=== PATIENT | male | born 1970 | race Caucasian/White ===

== ENCOUNTER 2020-07-27 07:36 | Outpatient (CLI) | payer MEDICARE, MEDICAID, SELFPAY ==
[2020-07-27 09:13] LABS: Hemoglobin A1C 5.1 % (<5.7)
== END 2020-07-27 07:37 | disposition home or self-care (01) ==
LOC: ANHSURGERY 07:44
PROVIDERS: PCP Family Medicine; Visit Provider Urology
DX: Z01.818 Encounter for other preprocedural examination (principal); N52.9 Male erectile dysfunction, unspecified
CPT/HCPCS: 36415; 83036; 87086

== ENCOUNTER 2020-08-09 00:31 | Outpatient (CLI) | payer MEDICARE, MEDICAID, SELFPAY ==
[2020-08-09 16:39] LABS: SARS-CoV-2 RNA PCR Negative
== END 2020-08-09 00:32 | disposition home or self-care (01) ==
LOC: ANHCOVIDDT 00:31
PROVIDERS: PCP Family Medicine; Visit Provider Urology
DX: Z01.812 Encounter for preprocedural laboratory examination (principal); Z20.828 Contact with and (suspected) exposure to other viral communicable diseases
CPT/HCPCS: 87635; C9803; U0003

== ENCOUNTER 2020-08-11 01:46 | Day surgery (SDC) | payer MEDICARE, MEDICAID, SELFPAY ==
[2020-07-27 07:52] VITALS: BP 133/74; PULSE 82; RESP 16; TEMP 37.1; O2SAT 97; BMI 36.8
[2020-08-11] VITALS (9 sets, daily range): BP systolic 115–141; BP diastolic 78–92; PULSE 62–91; RESP 12–24; TEMP 36.3–36.9; O2SAT 93–100
--- NOTE | 2020-08-11 10:03 | WPDANESEPPF ---
Anes - Initial Pre Proc Eval Procedure: Operation Date: 08/11/20 13:00 Proposed Procedures p Insertion Inflatable Penile Prosthesis - Mojgan Desai MD Date/Time: 08/11/20 10:03 Surgeon: Mojgan Desai MD Pre Op Diagnosis: Other Male Erectile Dysfunction Patient Data Age: 50 Gender: M Height: 1.63 m Weight: 97.4 kg Last Vital Signs Temp 37.1 C 07/27/20 07:52 Pulse 82 07/27/20 07:52 Resp 16 07/27/20 07:52 BP 133/74 07/27/20 07:52 Pulse Ox 97 07/27/20 07:52 Allergies Allergy/AdvReac Type Severity Reaction Status Date / Time adhesive tape Allergy Intermediate Rash Verified 08/11/20 11:58 bee venom protein (honey bee) Allergy Intermediate Swelling Verified 08/11/20 11:58 [bees] Home Medications Medication Instructions Recorded Confirmed Type ibuprofen 800 mg PO TID 07/27/20 08/11/20 History icosapent ethyl [Vascepa] 1 g PO BID 07/27/20 08/11/20 History multivitamin 1 tablet PO DAILY 07/27/20 08/11/20 History terbinafine HCl 250 mg PO DAILY 07/27/20 08/11/20 History tizanidine 2 mg PO TID 07/27/20 08/11/20 History tramadol 100 mg PO Q6-8H 07/27/20 08/11/20 History Patient hx anesthesia problems: none Family hx anesthesia problems: none PMFSH Past Medical History Medical History (Updated 08/11/20 @ 08:29 by Ankur Schmitt DO) Chronic, continuous use of opioids tramadol History of MRSA infection NISA (obstructive sleep apnea) Surgical History Surgical History (Updated 08/11/20 @ 08:29 by Ankur Schmitt DO) History of appendectomy History of tonsillectomy Social History Social History Years smoked: 1 Smoking status: Former smoker Tobacco type: cigars Living arrangements: with family Spiritual care concerns: No Anes - Eval Final PreProcedure Day of Procedure 08/11/20 10:03 Patient weight: obese Heart: regular rate and rhythm Lungs: clear to auscultation and normal air movement Airway: Mallampati scale class II Neurological: alert and oriented Last oral intake: >/= 8 hours ASA classification: III Emergent: no Anesthetic plan: proceed Anesthesia type and monitoring: general LMA and standard monitoring Informed Consent: The patient's anesthetic plan and its attendant risks and benefits were discussed with the patient/family/POA. Questions were solicited and answers provided to the satisfaction of the patient/family/POA.
[2020-08-11] MEDS: LACTATED RINGERS 1,000 ML 30 ML IV CONT ×2 (11:15→16:40)
[2020-08-11] MEDS: GENTAMICIN SULFATE INJ 370 MG in DEXTROSE 5% 100 ML 109.3 MG IVPB (11:37)
--- NOTE | 2020-08-11 12:33 | WPDHPUPDATE1 ---
History and Physical Update Update Date/Time: 08/11/20 12:33 History and Physical has been reviewed, including an updated exam of the patient. There are NO changes in the patient's condition. Risks, benefits, and alternatives have been discussed and questions answered. Patient agrees to proceed with procedure.
--- NOTE | 2020-08-11 16:40 | P.OP_ITS ---
Procedure Note - Detailed Date of procedure: 08/11/20 Pre-op diagnosis: Other Male Erectile Dysfunction Procedure performed: 1. Placement of three-piece inflatable penile prosthesis 2. Artificial erection with dilute lidocaine Description of procedure: DESCRIPTION OF PROCEDURE: Informed consent was obtained. The patient was taken to the operating room, given preoperative IV antibiotics. He was induced with anesthesia. He was shaved and then prepped and draped in the normal sterile fashion. Using a Betadine scrub and paint followed by ChloraPrep. Drapes were placed. We then prepped again with ChloraPrep. A 16-Icelandic Meraz catheter was inserted. We then irrigated and changed gloves. An artificial erection was performed with lidocaine revealing a normal erection with no significant curvature. We then made a 3 cm midline penoscrotal incision. We dissected down to the corporal bodies. We opened the right corporal body. We irrigated. We then dilated Masterson dilators starting from #9 to #12. We measured 8.5 cm proximal and 10.5 cm distal. We then performed identical procedure on the contralateral side again with slightly more fibrosis on the left. We measured 9.5 cm proximal and 9.5 cm distal. We elected to place a 18 cm LGX device with 1 cm rear tips. We placed dilators bilaterally proximally and there was no crossover. We irrigated the corporal bodies. There was no injury. We then changed gloves. We then placed the implant. Using a surrogate reservoir, we inflated. The cylinders sat nicely With tips in the mid glans. There was an approximately 30degree left curvature in the mid shaft. We then placed rubber shod clamps over the tubing and performed gentle modeling for 90seconds. At this point we then reinflated and there was only 15? of residual curvature. This appeared to be a nice cosmetic result with the tips in the mid glans. We then irrigated copiously. We then made a right lower quadrant incision. We dissected down to the external oblique fascia. The fascia was opened. We made a space into the rectus muscle. We irrigated. We then pre-placed 0 Vicryl sutures. We placed the 100 cc flat reservoir, was overfilled to 100 cc creating space and then left with 90 cc in the reservoir. We then closed our pre-placed sutures. We then made a subdartos midline pouch for the scrotal pump. It sat nicely in the inferior scrotum. We then brought the tubing from the scrotum to the abdomen and then using Quick connect connected the device. We cycled again within a nice cosmetic result and good functionality of the implant. We then irrigated copiously because the scrotum with multiple layers of 3-0 Vicryl suture followed by a 3-0 Monocryl horizontal mattress suture. We closed the abdomen with Morena layer with 2-0 Vicryl, 3-0 Vicryl deep dermal layer, and a 4-0 Monocryl subcuticular closure. Glue was placed over all incisions. A compressive dressing was placed. The patient was then awakened, taken to recovery room in stable condition. Anesthesia: GLMA Surgeon: Mojgan Desai MD Estimated blood loss (mL): 50 Complications: No immediate complications Condition: stable Disposition: PACU
[2020-08-11] MEDS: fentaNYL CITRATE INJ (*CRX) 100 MCG/2 ML VIAL 25 MCG IV PUSH ×8 (16:44→17:03)
[2020-08-11] MEDS: HYDROcodone/acetaminophen (*CRX) 5-325 MG TABLET 1 TAB PO ×2 (18:38→22:15)
[2020-08-11] MEDS: TIZANIDINE HCL 2 MG TABLET PO (20:17)
[2020-08-11] MEDS: DOCUSATE SODIUM 100 MG CAPSULE PO (20:17)
[2020-08-11] MEDS: MORPHINE SULFATE (*CRX) 2 MG/ML INJ IV PUSH (20:17)
--- NOTE | 2020-08-11 20:22 | ADMGEN ---
This patient, Haile Bean, was admitted to [facility] Surg Room 313-01. Patient/family oriented to hospital policies and general routines including ID bracelet, bed and alarms, visiting hours, pain management, procedures, bathroom and other care routines, personal items, smoking policy, room service/diet, and visiting hours. Valuables list has been completed. Information on how to activate the Rapid Response Team has been discussed. Patient/Family are encouraged to report perceived risks to care and to ask questions if they do not understand what they are told or what they should do.
[2020-08-12] MEDS: MORPHINE SULFATE (*CRX) 2 MG/ML INJ IV PUSH ×4 (00:33→12:51)
[2020-08-12 02:05] VITALS: PULSE 85; RESP 15; O2SAT 98
[2020-08-12 02:06] VITALS: BP 103/66; PULSE 86; RESP 20; TEMP 36.9; O2SAT 97
[2020-08-12] MEDS: HYDROcodone/acetaminophen (*CRX) 5-325 MG TABLET 1 TAB PO ×3 (02:15→10:17)
[2020-08-12 06:20] VITALS: BP 110/72
[2020-08-12 06:26] VITALS: BP 98/73; PULSE 68; RESP 20; TEMP 36.6; O2SAT 97
[2020-08-12] MEDS: TIZANIDINE HCL 2 MG TABLET PO ×2 (09:04→12:52)
[2020-08-12] MEDS: DOCUSATE SODIUM 100 MG CAPSULE PO (09:04)
[2020-08-12] MEDS: terbinafine HCL 250 MG TABLET PO (09:04)
--- NOTE | 2020-08-12 09:04 | WPDUROPN2 ---
Progress Note: A&P Assessment and Plan (1) Erectile dysfunction: Code(s): N52.9 - Male erectile dysfunction, unspecified Status: Acute Assessment and Plan: Follow up in two weeks with Dr. Desai. Ok to go home today after he is able to urinate and gets next dose of antibiotics. Remove velarde catheter and apply scrotal support, place penis in upward position. Subjective Subjective Date/Time Seen: 08/12/20 09:04 POD #1 IPP Review of Systems Cardiovascular: Cardiovascular: Denies chest pain Respiratory: Respiratory: Reports no additional respiratory complaints Gastrointestinal: Gastrointestinal: Denies abdominal pain, Denies nausea and Denies vomiting Genitourinary: Genitourinary: Reports genital pain, Denies penile discharge and Denies testicular pain Exam Resp: Effort & Inspection: normal respiratory effort Cardio: Rate: regular rate GI: GI Palp: Yes abdominal tenderness (at RLQ incsion only, no drainage or edema, minimal ecchymosis) and Yes Soft to palpation : General: Yes no CVA tenderness Penis: Yes edematous and Yes erythematous Scrotum: ecchymosis, edematous and scrotal swelling Other: incisons are well approximated, no drainage present Urinary Catheter: Urinary Catheter: patent and draining and urine clear Extrem: General: no edema Objective Data Vital Signs Vital Signs: Vital Signs - 24 hr 08/11/20 12:05 08/11/20 16:40 08/11/20 16:55 Temperature 97.8 F 98.5 F Pulse Rate 62 74 71 Respiratory Rate 16 24 H 12 Blood Pressure 141/80 H 125/86 131/86 Pulse Oximetry 98 97 100 08/11/20 17:10 08/11/20 17:25 08/11/20 17:40 Temperature Pulse Rate 74 71 69 Respiratory Rate 18 20 20 Blood Pressure 137/88 130/86 140/92 H Pulse Oximetry 93 97 94 08/11/20 18:29 08/11/20 20:00 08/11/20 22:00 Temperature 98.4 F 97.4 F L 97.3 F L Pulse Rate 76 91 91 Respiratory Rate 20 20 20 Blood Pressure 115/86 131/82 127/78 Pulse Oximetry 98 98 98 08/12/20 02:05 08/12/20 02:06 08/12/20 06:20 Temperature 98.4 F Pulse Rate 85 86 Respiratory Rate 15 20 Blood Pressure 103/66 110/72 Pulse Oximetry 98 97 08/12/20 06:26 Temperature 97.9 F Pulse Rate 68 Respiratory Rate 20 Blood Pressure 98/73 L Pulse Oximetry 97 Intake/Output Intake/Output: Intake & Output 08/09/20 08/10/20 08/11/20 08/12/20 23:59 23:59 23:59 23:59 Intake Total 1359.25 960 Output Total 300 3550 Balance 1059.25 -2590 Meds/Results Medications: Active Medications Generic Name Dose Route Start Last Admin Trade Name Freq PRN Reason Stop Dose Admin Hydrocodone Bitart/Acetaminophen 1 tab 08/11/20 17:44 08/12/20 06:19 [place] 5-325 Mg PO 1 tab Q4H PRN Administration Pain Rated 1-6 Docusate Sodium 100 mg 08/11/20 17:44 08/11/20 20:17 Colace Capsule PO 100 mg BID JACK Administration Hyoscyamine 0.125 mg 08/11/20 17:44 Levsin Tablet SUBLINGUAL Q6H PRN Bladder Spasm Gentamicin Sulfate/Sodium Chloride 80 mg in 50 mls @ 100 mls/hr 08/12/20 17:00 Gentamicin 80mg/Sod Chl 50 Ml IVPB 08/12/20 17:29 ONCE ONE Vancomycin HCl 1,000 mg in 250 mls @ 250 mls/hr 08/11/20 18:00 08/12/20 06:18 Vancomycin 1,000 Mg/D5w 250 Ml IVPB 08/12/20 18:01 250 mls/hr Q12H JACK Administration Levofloxacin 500 mg 08/12/20 09:00 Levaquin Tab PO QAM JACK Morphine Sulfate 2 mg 08/11/20 17:44 08/12/20 04:01 Morphine Sulfate Inj (*Crx) IV PUSH 2 mg Q2H PRN Administration Pain Rated 7-10 Naloxone HCl 0.1 mg 08/11/20 17:44 Narcan IV PUSH Q2M PRN Opiate Reversal Ondansetron HCl 4 mg 08/11/20 17:44 Zofran Inj IV PUSH Q12H PRN Nausea And Vomiting Terbinafine HCl 250 mg 08/12/20 09:00 Lamisil PO DAILY [facility] Tizanidine HCl 2 mg 08/11/20 17:44 08/11/20 20:17 Zanaflex PO 2 mg TID JACK Administration Tramadol HCl 100 mg 08/12/20 00:07 Ultram PO Q6HR PRN Pain Rated
--- NOTE | 2020-08-12 10:06 | PC.NURSE ---
Spoke with Stefanie Francis GRADER MARKER for Dr Desai. Called for clarification on when Meraz catheter is to be removed. Pt is to have Meraz removed today before discharge home. Pt can be D/C home after he can urinate and have scrotal support.
--- NOTE | 2020-08-12 10:49 | PM.DS ---
DS: Admitting Diagnosis Admitting Diagnosis Admitting Diagnosis: Other Male Erectile Dysfunction DS: Discharge Diagnosis Discharge Diagnosis (1) Erectile dysfunction: Code(s): N52.9 - Male erectile dysfunction, unspecified Status: Acute Assessment and Plan: Pre Op diagnosis: ED Post OP Diagnosis: ED Patient underwent an IPP implant yesterday with DR. Mojgan Desai and tolerated procedure well. He was then transferred to recovery in stable condition and to the floor for pain management overnight. He is doing well today. His dressing was removed and velarde removed as well. He will go home today on regular diet, activity as tolerated, no driving on pain medications. HE should follow up in two weeks, apply scrotal support and keep his penis in an upright position until his follow up appt. DS: Summary Time Spent with Patient Time attestation: Total time spent providing and/or coordinating discharge services: Exam Resp: Effort & Inspection: normal respiratory effort Cardio: Rate: regular rate GI: Inspection: incision (well approximated, no drainage) GI Palp: Yes Soft to palpation and Yes Tenderness to palpation present (GI) : General: Yes no CVA tenderness Penis: Yes ecchymosis and Yes edematous Scrotum: ecchymosis and edematous Urinary Catheter: Urinary Catheter: patent and draining and urine clear Extrem: General: no edema Discharge Plan Discharge Patient Disposition: Home, Self-Care Discharge Instructions: - scrotal elevation x 2 weeks - no lifting over 20 lbs x 3 weeks Stand Alone Forms: General Discharge Instructions Follow-up/Referrals: Mojgan Desai MD [Physician] - Discharge Orders: Discharge Order (Routine); Ordered 08/12/20 Ordered By: Stefanie Francis Discharge Medications: New hydrocodone-acetaminophen 5-325 mg Tablet 1 tablet PO Q4H PRN (Reason: Pain Rated 1-6) Qty: 20 RF: 0 docusate sodium 100 mg Capsule 100 mg PO BID Qty: 14 RF: 0 sulfamethoxazole-trimethoprim [Bactrim DS] 800-160 mg tablet 1 tablet PO Q12H Qty: 14 RF: 0 Continued multivitamin Tablet 1 tablet PO DAILY RF: 0 tizanidine 2 mg tablet 2 mg PO TID RF: 0 tramadol 50 mg tablet 100 mg PO Q6H PRN (Reason: Pain) RF: 0 terbinafine HCl 250 mg tablet 250 mg PO DAILY RF: 0 Vascepa 1 gram capsule 1 g PO BID RF: 0 Held ibuprofen 800 mg Tablet 800 mg PO TID RF: 0 Hold Instructions: Resume on 08/15/20.
--- NOTE | 2020-08-12 11:07 | WPDANESPN ---
Anes - Prog Note Post-Op Date/Time: 08/12/20 11:07 Cardiovascular status: normal Respiratory status: normal Airway patency: baseline Mental status: baseline Post-Op hydration status: normal Vital Signs: Last Vital Signs Temp 36.6 C 08/12/20 06:26 Pulse 68 08/12/20 06:26 Resp 20 08/12/20 06:26 BP 98/73 L 08/12/20 06:26 Pulse Ox 97 08/12/20 06:26 Pain Score (VAS): 3 I/O: Intake & Output 08/11/20 08/12/20 08/12/20 23:59 07:59 15:59 Intake Total 750 960 480 Output Total 300 9231 486 Balance 760 -9336 -901 Post-procedural complaints: none Patient Feedback: Patient satisfied with anesthetic care.
[2020-08-12 14:10] VITALS: BP 115/67; PULSE 73; RESP 18; TEMP 36.5; O2SAT 98
== END 2020-08-12 14:00 | disposition home or self-care (01) ==
LOC: ANHSURGERY 16:40 → ANH3MEDSUR 08-12 02:38
PROVIDERS: PCP Family Medicine; Visit Provider Urology
PROC: (CPT 54405; principal; 2020-08-11 13:00)
DX: N52.8 Other male erectile dysfunction (principal); G47.33 Obstructive sleep apnea (adult) (pediatric); Z79.891 Long term (current) use of opiate analgesic; Z87.891 Personal history of nicotine dependence; E66.9 Obesity, unspecified; Z68.36 Body mass index [BMI] 36.0-36.9, adult
CPT/HCPCS: 54405; 54235; A9270; J1100; J1580; J2250; J2270; J2405; J2704; J3010; J3370; J7030; J7120

== ENCOUNTER 2025-01-21 12:27 | Outpatient (CLI) | payer MEDICARE, MEDICAID, SELFPAY ==
--- NOTE | 2025-01-21 13:28 | ECG_ITS ---
Test Date: 2025-01-21 13:41:16 Measurements Intervals [place] Rate: 88 P: 25 NC: 139 QRS: 15 QRSD: 108 T: -3 QT: 353 QTc: 428 Interpretive Statements SINUS RHYTHM POOR R WAVE PROGRESSION CONSIDER INFERIOR INFARCT, AGE INDETERMINATE BASELINE ARTIFACT- I, II, III, AVR, AVL, AVF ABNORMAL ECG No previous ECG available for comparison Electronically Signed On 01-21-2025 13:51:31 POLISHING MACHINE OPERATOR by Gurdeep Amaral D.O.
[2025-01-21 19:27] LABS: Hemoglobin A1C 5.4 % (<5.7)
== END 2025-01-21 12:28 | disposition home or self-care (01) ==
LOC: ANHSURGERY 12:34
PROVIDERS: PCP Family Medicine; Visit Provider Urology
DX: Z01.818 Encounter for other preprocedural examination (principal); T83.490A Other mechanical complication of implanted penile prosthesis, initial encounter; E78.5 Hyperlipidemia, unspecified
CPT/HCPCS: 36415; 83036; 87086; 93005

== ENCOUNTER 2025-01-30 08:02 | Outpatient (CLI) | payer MEDICARE, MEDICAID, SELFPAY ==
--- NOTE | 2025-01-30 | EST_ITS ---
Patient Info Name: Haile Bean Age: 54 years : 1970 Gender: Male Ht: 63 in Wt: 230 lbs BSA: 2.21 m2 Exam Date: 01/30/2025 10:17 AM Exam Location: Echo Lab Patient Status: Outpatient Admit Date: 01/30/2025 Staff Ordering Physician: TREVIN, JERAD Attending Provider: TREVIN, JERAD Exercise Technologist: Kayley Olmstead RDCS Exercise Physician: Gurdeep Amaral DO Exam Type: CA stress chon w NM Study Info A regadenoson stress test was performed. Summary 1. 1. Negative lexiscan stress test for ischemic ST changes by ECG criteria. 2. 2. Stable hemodynamics throughout the test. 3. 3. Nuclear scan to follow and will be reported separately. Please correlate with it. 4. 4. Patient informed of the above results. Protocol: Lexiscan Stress ECG Details Stage: REST Duration (min): 1 min : 8 sec HR (bpm): 63 SBP (mmHg): 117 DBP (mmHg): 80 Stage: REST Duration (min): 14 min : 11 sec HR (bpm): 70 SBP (mmHg): 117 DBP (mmHg): 80 Stage: STAGE 1 Duration (min): 1 min : 0 sec HR (bpm): 98 SBP (mmHg): 119 DBP (mmHg): 99 Stage: RECOVERY Duration (min): 1 min : 0 sec HR (bpm): 85 SBP (mmHg): 127 DBP (mmHg): 100 Stage: RECOVERY Duration (min): 2 min : 0 sec HR (bpm): 82 SBP (mmHg): 127 DBP (mmHg): 100 Stage: RECOVERY Duration (min): 3 min : 0 sec HR (bpm): 80 SBP (mmHg): 134 DBP (mmHg): 96 Stage: RECOVERY Duration (min): 3 min : 29 sec HR (bpm): 84 SBP (mmHg): 134 DBP (mmHg): 96 Rest HR: 70 bpm Peak HR: 98 bpm Rest Sys BP: 117 mmHg Peak Sys BP: 134 mmHg Max Pred HR: 165 bpm % Max Pred HR: 59 % Target HR: 140 bpm Max RPP: 13,132 bpm*mmHg Termination Reason: Completed protocol Cardiac Symptoms: Shortness of breath Total Time: 1 min : 0 sec Rest Martinez BP: 80 mmHg Peak Martinez BP: 96 mmHg Total Dose: 0.4 mg Resting ECG Sinus rhythm. Stress ECG No ST changes. Arrhythmias None. Report Signatures
--- NOTE | ~2025-01-30 | NM_ITS ---
EXAMINATION: NM chon stress w perfusion DATE: 01/30/2025 12:02 INDICATION: Dyspnea on exertion TECHNIQUE: Rest images were obtained following intravenous administration of 9 mCi Tc99m tetrofosmin (Myoview). The patient was infused intravenously with Lexiscan (Regadenoson). Then, 35 mCi Tc99m tetr ofosmin (Myoview) was administered intravenously, and stress images were obtained. Data was reconstru cted into short axis and horizontal and vertical long axis SPECT images. Gated SPECT images were also obtained. COMPARISON: None. FINDINGS: There is decreased activity at the apical, apical septal, apical anterior and apical latera l segments on the rest images which nearly completely normalizes on the post stress imaging suggestin g artifact. There is minimal residual decreased activity at the apical and apical anterior segments o n the stress images which is equivocal for residual artifact versus infarct. No reversible ischemia. There is normal left ventricular chamber size, wall motion and ejection fraction. Left ventricular ejection fraction measures 58%. IMPRESSION: 1. Small region of either mild infarct or more likely attenuation artifact at the apical and anteroap ical segments. No reversible ischemia. 2. Left ventricular ejection fraction measuring 58%. Reviewed, dictated and finalized at location B. RD CLERK IMPRESSION: 1. Small region of either mild infarct or more likely attenuation artifact at t he apical and anteroapical segments. No reversible ischemia. 2. Left ventricular ejection fraction measuring 58%.
--- OUTSIDE RECORDS SUMMARY | 2025-01-30 08:10 | XMS_ITS | Encounter Summary ---
Author Organization [facility] Address [address] [place] [address] Care Team Providers Care Instructional Interventionist Name Role Phone Manuel Eller MD Primary Care Provider [phone] Encounter Details Date Type Department Care Team (Late st Contact Info) Description 02/09/2018 Abstract [facility] CONVERSION [address] [place] [address] , Generic Conversion, Social History Tobacco Use Types Packs/Day Years Used Date Smoking Tobacco: Never Assessed Sex and Gender Information Value Date Recorded Sex Assigned at Male 12/10/2024 9:04 AM PLASTICS FABRICATOR AND ASSEMBLER Legal Sex Male 9:31 PM PLASTICS FABRICATOR AND ASSEMBLER Gender Identity Not on file Sexual Orientation Not on file documented as of this encounter Plan of Treatment Not on file documented as of this encounter Visit Diagnoses Not on filedocumented in this encounter Additional Health Concerns Infection Onset Date Last Indicated Resolved Time MRSA 12/11/2018 12/11/2018 documented as of this encounter Care Teams Instructional Interventionist Relationship Specialty Start Date End Date Manuel Eller MD [address] [place] [address] PCP - General FAMILY PRACTICE 08/18/19 documented as of this encounter
--- OUTSIDE RECORDS SUMMARY | 2025-01-30 08:10 | XMS_ITS | Encounter Summary ---
Author Organization [facility] Address [address] [place] [id number] Care Team Providers Care Clinical Biostatistician Name Role Phone Manuel Eller MD Primary Care Provider [phone] Encounter Details Date Type Department Care Team (Late st Contact Info) Description 05/03/2019 Abstract [facility] CONVERSION [address] [address] , Generic Conversion, Social History Tobacco Use Types Packs/Day Years Used Date Smoking Tobacco: Never Assessed Sex and Gender Information Value Date Recorded Sex Assigned at Male 12/10/2024 9:04 AM YARD JOCKEY Legal Sex Male 9:31 PM YARD JOCKEY Gender Identity Not on file Sexual Orientation Not on file documented as of this encounter Plan of Treatment Not on file documented as of this encounter Visit Diagnoses Not on filedocumented in this encounter Additional Health Concerns Infection Onset Date Last Indicated Resolved Time MRSA 12/11/2018 12/11/2018 documented as of this encounter Care Teams Clinical Biostatistician Relationship Specialty Start Date End Date Manuel Eller MD [address] [place] [address] PCP - General FAMILY PRACTICE 08/18/19 documented as of this encounter
--- OUTSIDE RECORDS SUMMARY | 2025-01-30 08:10 | XMS_ITS | Clinical Summary ---
Author Organization [facility] Address [address] [place] [id number] Care Team Providers Care Master Plumber Name Role Phone Manuel Eller MD Primary Care Provider +1 [phone] Allergies Active Allergy Reactions Criticality Noted Date Comments Bee Venom Swelling 11/05/2014 Tape Other (see comment) 11/05/2014 Reddness and irritation Medications ibuprofen 800 MG tablet Active traMADol 50 MG tablet 0 10/02/2019 Active gabapentin 300 MG capsule Take 1 capsule (300 mg total) by mouth 3 (three) times daily. 09/27/2021 Active VASCEPA 1 g capsule Take 2 capsules (2 g total) by mouth 2 (two) times daily. 10/26/2021 Active sertraline 50 MG tablet Take 1 tablet (50 mg total) by mouth daily. 10/26/2021 Active tiZANidine 2 MG tablet Take 1 tablet (2 mg total) by mouth 3 (three) times daily. 10/26/2021 Active Multiple Vitamins-Minera ls (MULTIVITAMIN ADULTS OR) Active Active Problems Problem Noted Date Diagnosed Date Acute pain of left knee 11/23/2021 Encounters Date Type Department Care Team Description 12/10/2024 9:08 AM WOODWORK TEACHER - 12/10/2024 11:[address] [facility] Hospital Encounter [facility] [address] [place] [address] Huy Desai MD Discharge Disposition: Home or Self Care (Routine Discharge) 12/10/2024 Travel from Last 3 Months Family History Medical History Relation Comments OCD Brother 1 No Known Problems Brother 2 No Known Problems Father Scoliosis Mother No Known Problems Sister Relation Status Comments Brother 1 Alive Brother 2 Alive Father Alive Mother Alive Sister Alive Social History Tobacco Use Types Packs/Day Years Used Date Smoking Tobacco: Never Smokeless Tobacco: Never Tobacco Cessation:Counseling Given: Not Answered Alcohol Use Standard Drinks/Week Comments Yes 0 (1 standard drink = 0.6 oz pur e alcohol) occassionally AUDIT-C Answer Date Recorded Frequency of Alcohol Consumption Never 10/13/2019 Average Number of Drinks Not on file 019 Frequency of Binge Drinking Not on file 09/26 Sex and Gender Information Value Date Recorded Sex Assigned at Male 12/10/2024 9:04 AM WOODWORK TEACHER Legal Sex Male 9:31 PM WOODWORK TEACHER Gender Identity Not on file Sexual Orientation Not on file Last Filed Vital Signs Vital Sign Reading Time Taken Comments Blood Pressure 121/80 07/10/2023 12:48 PM CDT Pulse 79 07/10/2023 12:48 PM CDT Temperature 36.2 C (97.2 F) 07/10/2023 12:48 PM CDT Respiratory Rate 20 07/10/2023 12:48 PM CDT Oxygen Saturation 99% 07/10/2023 12:48 PM CDT Inhaled Oxygen Concentration - - Weight 104.3 kg (230 lb) 07/09/2023 8:14 AM CDT Height 160 cm (5' 3 ) 07/09/2023 8:14 AM CDT Body Mass Index 40.74 07/09/2023 8:14 AM CDT Plan of Treatment Health Maintenance Due Date Last Done Comments Annual Physical 1972 Hepatitis C 1987 Hepatitis B Vaccines (1 of 3 - 19+ 3-dose series) 1988 COVID-19 Vaccine ( - 2023-2 5 season) 2024 04/09/2021, 02/28/2021 Influenza Adult (#1) 2024 09/23/2021 DTaP, Tdap and Td Vaccines ( 2 - Td or Tdap) 01/04/2033 01/04/2023 Colorectal Cancer Screening Colonoscopy (10 Years) 07/10/2033 07/10/2023, 07/10/2023 Zoster Vaccines Completed 10/05/2021, 07/14/2021 Meningococcal B Vaccine Aged Out No l onger eligible based on patient's age to complete this topic Meningococcal Vaccine Aged Out No faiza kevin eligible based on patient's age to complete this topic Pneumococcal Vaccine: Pediatrics (0 to 5 Years) and At-Risk Patients (6 to 64 Years) Aged Out No longer eligible b ased on patient's age to complete this topic RSV Immunizations Under 20 Months Aged Out No longer eligible b ased on patient's age to complete this topic Medical Devices Implanted Type Area Corporate Scheduler Device Identifier Shelf Expiration Date Model / Serial / Lot Penile Prosthesis Penile Flux [id number] / / Description:MR Conditional u nder following conditions: Static magnetic field of 1.5 T or 3 T, Max spatial gradient field of 720 Gauss/cm , Max whole body CATHY of 1.5 W/kg or less at 1.5 T , 2.9 W/kg or less at 3 T, Head CATHY 3.2 W/kg or less Procedures Procedure Name Priority Date/Time Associated Diagnosis Comments CT PEL WO CON Routine 12/10/2024 9:19 AM WOODWORK TEACHER Malfunction of penile prosthesis (CMS/HCC) COLONOSCOPY 07/10/2023 6:44 AM CDT from Last 3 Months or Most Recently Relevant to Health Maintenance Results * CT PEL WO CON (12/10/2024 9:19 AM WOODWORK TEACHER) Anatomical Region Laterality Modality Pelvis Computed Tomogra phy 12/11/2024 9:54 AM WOODWORK TEACHER Impressions 12/11/2024 10:01 AM WOODWORK TEACHER Impression: The reservoir of the penile implant is located in the right rectus musculature. This reservoir is complete collapsed and only contains small amount of air (no fluid). The tubing of the reservoir courses in the anterior right subcutaneous fat of the pelvis and into the scrotal pump. The tubing and pump are intact and contain the air. The parallel penile implant hardware is intact. No inflammatory changes or hematoma related to the implanted hardware. Ordered By: HUY DESAI Interpreted By: Alberto Sewell MD, 12/11/2024 9:54 AM Narrative 12/11/2024 10:01 AM WOODWORK TEACHER [address] [place] [address] Examination: CT pelvis without contrast Exam Date: 12/10/2024 9:13 AM Indication: Penile implant dysfunction. patient has penile implant x 5 years, states approx 4 months ago, pump began to malfunction - evaluate and possibly replace in near future. Comparison:None Technique: Standard technique. Dose reduction: This CT exam was performed using one or more of the following dose reduction techniques: Automated exposure control, adjustment of the mA and/or kV according to patient size, and/or use of iterative reconstruction technique. Findings: Penile implant reservoir is in the right rectus musculature. The reservoir is collapsed and contains small air. The tubing of the reservoir courses in the anterior right subcutaneous fat of the pelvis and into the right sided scrotal pump. Both the tubing and the pump containing air. The parallel penile prosthesis is intact. No inflammatory changes or hematoma. No intestinal tract obstruction or inflammation. Colonic diverticulosis. Bladder unremarkable. No prostate or seminal vesicle enlargement. No adenopathy. No inguinal hernias. Small fat herniated in umbilicus. No ascites or pelvic free fluid. No fracture. Hardware in the fused lumbar sacral spine. Degenerative changes are seen in the spine and SI joints and pelvis. No muscle hematoma or injury. Mild muscular atrophy. No subcutaneous fluid collections or air. Procedure Note Alberto Sewell MD - 12/11/[address] [place] [address] Examination: CT pelvis without contrast Exam Date: 12/10/2024 9:13 AM Indication: Penile implant dysfunction. patient has penile implant x 5years, states approx 4 months ago, pump began to malfunction - evaluateand possibly replace in near future. Comparison:None Technique: Standard technique. Dose reduction: This CT exam was performed using one or more of thefollowing dose reduction techniques: Automated exposure control,adjustment of the mA and/or kV according to patient size, and/or use ofiterative reconstruction technique. Findings: Penile implant reservoir is in the right rectus musculature. The reservoiris collapsed and contains small air. The tubing of the reservoir coursesin the anterior right subcutaneous fat of the pelvis and into the rightsided scrotal pump. Both the tubing and the pump containing air. Theparallel penile prosthesis is intact. No inflammatory changes orhematoma. No intestinal tract obstruction or inflammation. Colonic diverticulosis.Bladder unremarkable. No prostate or seminal vesicle enlargement. Noadenopathy. No inguinal hernias. Small fat herniated in umbilicus. Noascites or pelvic free fluid. No fracture. Hardware in the fused lumbarsacral spine. Degenerative changes are seen in the spine and SI joints andpelvis. No muscle hematoma or injury. Mild muscular atrophy. Nosubcutaneous fluid collections or air. Impression: The reservoir of the penile implant is located in the right rectusmusculature. This reservoir is complete collapsed and only contains smallamount of air (no fluid). The tubing of the reservoir courses in theanterior right subcutaneous fat of the pelvis and into the scrotal pump.The tubing and pump are intact and contain the air. The parallel penileimplant hardware is intact. No inflammatory changes or hematoma related to the implanted hardware. Ordered By: HUY DESAI Interpreted By: Alberto Sewell MD, 12/11/2024 9:54 AM us Huy Desai MD CT Final Result * Colonoscopy (07/10/2023 6:44 AM CDT) us Estiven Rosa MD GI PROCEDURE ORDERABLES Edite d Result - Final from Last 3 Months or Most Recently Relevant to Health Maintenance Additional Health Concerns Infection Onset Date Last Indicated MRSA 12/11/2018 12/11/[address] [facility] [place] [address] [employer] Care Teams Master Plumber Relationship Specialty Start Date End Date Manuel Eller MD [address] [place] [address] PCP - General FAMILY PRACTICE 08/18/19
== END 2025-01-30 08:03 | disposition home or self-care (01) ==
PROVIDERS: PCP Family Medicine
DX: R06.09 Other forms of dyspnea (principal)
CPT/HCPCS: 78452; 93017; A9502; J2785

== ENCOUNTER 2025-04-01 00:55 | Day surgery (SDC) | payer MEDICARE, MEDICAID, SELFPAY ==
[2025-01-21 12:59] VITALS: BP 120/83; PULSE 91; RESP 16; TEMP 36.7; O2SAT 97; BMI 40.9
--- NOTE | 2025-01-21 13:15 | PC.NURSE ---
Report to the Outpatient Waiting Room, entrance under the green pavilion located off [facility], at time __0830am on date _02/04/25 . Planned Procedure Time: 1030am___.? Time changes happen often and if your time is changed the preop area will call you the afternoon before. - You and your visitor will be asked to self-screen and do not enter if you have any COVID symptoms. Please call surgeon if you need to reschedule. - A mask is optional within the hospital at this time. Patients may have clear liquids (water, carbonated beverages, clear teas, apple juice) until 3 hours prior to surgery with a maximum of 20 ounces. - No food from midnight until time of surgery and no smoking, or chewing tobacco (or any form of nicotine). No chewing gum, candy or mints. (0730am) Take only the following medications with a SIP of water on the morning of surgery: , Gabapentin, Tramadol and Tylenol if needed DO NOT STOP ANY OF YOUR OTHER PRESCRIPTION MEDICATIONS PRIOR TO SURGERY EXCEPT THE FOLLOWING Hold all vitamins and supplements for 3 days per anesthesiologist.Date to take last dose____01/31/25 Medications to discontinue per physician __HOLD ALL NSAIDS/ALEVE or ASPIRIN Products for 7 days prior Date to take last dose____01/27/25 Please no make-up, nail belarusian, hairspray, perfume, deodorant, or body powder the day of surgery.? No jewelry (including any body piercings) or valuables the day of surgery, leave them at home.? Please take a shower or bath the night before, or the morning of, surgery with an antibacterial soap.Scrub according to protocol from Dr Lb ann and spine supervisor PREOP antibiotics as prescribed too. ? Wear comfortable, loose fitting clothing.? - Jewelry must be removed prior to entering the operating room.? Rings and piercings that are not removed may be cut off. - The hospital will not accept responsibility for valuables.? - Please leave all valuables, including medications, at home the day of surgery. If you are going home after surgery, a licensed route sales driver must drive you home.? - NO public transportation without another adult if you receive anesthesia. - We recommend that an adult stay with you for 24 hours following discharge. - We also recommend that you do not drive, make important decision, drink alcoholic beverages, or take any drugs that were not prescribed by your health care provider for at least 24 hours after your discharge time. Follow any additional instructions given to you from your surgeon. Telephone instructions given to __Pateint and and asked if any additional questions and then verbalized understanding. Patient advised to call surgeon office or pre surgery nurse liaison [phone] if any additional questions.
[2025-03-20 09:49] VITALS: BMI 40.9
--- NOTE | 2025-03-20 10:52 | PC.NURSE ---
Report to the Outpatient Waiting Room, entrance under the green pavilion located off [facility], at time ___0830___ on date ___04/01/25__. Planned Procedure Time: ___1030___.? Time changes happen often and if your time is changed the preop area will call you the afternoon before. - You and your visitor will be asked to self-screen and do not enter if you have any COVID symptoms. Please call surgeon if you need to reschedule. - A mask is optional within the hospital at this time. Patients may have clear liquids (water, carbonated beverages, clear teas, apple juice) until 3 hours prior to surgery with a maximum of 20 ounces. - No food from midnight until time of surgery and no smoking, or chewing tobacco (or any form of nicotine). No chewing gum, candy or mints. Take only the following medications with a SIP of water on the morning of surgery: ____gabapentin, tramadol if needed DO NOT STOP ANY OF YOUR OTHER PRESCRIPTION MEDICATIONS PRIOR TO SURGERY EXCEPT THE FOLLOWING Hold all vitamins and supplements for 3 days per anesthesiologist. Medications to discontinue per physician ____please hold ibuprofen per surgeon___ Please no make-up, nail hungarian, hairspray, perfume, deodorant, or body powder the day of surgery.? No jewelry (including any body piercings) or valuables the day of surgery, leave them at home.? Please take a shower or bath the night before, or the morning of, surgery with an antibacterial soap.? Wear comfortable, loose fitting clothing.? - Jewelry must be removed prior to entering the operating room.? Rings and piercings that are not removed may be cut off. - The hospital will not accept responsibility for valuables.? - Please leave all valuables, including medications, at home the day of surgery. If you are going home after surgery, a licensed pedicab driver must drive you home.? - NO public transportation without another adult if you receive anesthesia. - We recommend that an adult stay with you for 24 hours following discharge. - We also recommend that you do not drive, make important decision, drink alcoholic beverages, or take any drugs that were not prescribed by your health care provider for at least 24 hours after your discharge time. Follow any additional instructions given to you from your surgeon. Telephone instructions given to ___Haile Ga __and asked if any additional questions and then verbalized understanding. Patient advised to call surgeon office or pre surgery nurse liaison [phone] if any additional questions.
[2025-04-01] VITALS (10 sets, daily range): BP systolic 118–153; BP diastolic 70–100; PULSE 72–107; RESP 10–18; TEMP 36.6–37.2; O2SAT 90–99
--- OUTSIDE RECORDS SUMMARY | 2025-04-01 00:57 | XMS_ITS | Clinical Summary ---
Author Organization [facility] Address [address] [place] [address] Care Team Providers Care Vocational Nursing Instructor Name Role Phone Manuel Eller MD Primary Care Provider [phone]- [phone] Allergies Active Allergy Reactions Criticality Noted Date [...] Encounters Date Type Department Care Team Description 03/24/2025 1:24 PM CDT - 03/24/2025 11:59 PM CDT [place] [address] [address] Mojgan Desai MD Discharge Disposition: Home or Self Care (Routine Discharge) 03/24/[address] [place] [id number] Mojgan Desai MD 03/24/2025 Travel 03/04/2025 2:27 PM CDT - 03/04/2025 11:59 PM CDT Hospital Encounter [facility] [address] [place] [address] Jerad Zhong PA Discharge Disposition: Home or Self Care (Routine Discharge) 03/04/2025 Travel from Last 3 Months Family History [...] Sex Assigned at Male 12/10/2024 9:04 AM COMMERCIAL AIRPLANE PILOT Legal Sex Male 9:31 PM COMMERCIAL AIRPLANE PILOT Gender Identity Not on file Sexual Orientation [...] of 3 - 19+ 3-dose series) 1988 Pneumococcal Vaccine: 50+ Years (1 of 1 - PCV) 2019 COVID-19 Vaccine ( - 2023-2 5 season) 2024 04/09/2021, 02/28/2021 DTaP, Tdap and Td Vaccines ( 2 [...] this topic Medical Devices Implanted Type Area Electrical And Instrumentation Mechanic Device Identifier Shelf Expiration Date Model / Serial / Lot Penile Prosthesis Penile AMS Rapport [id number] / / Description:MR Conditional u nder following conditions: Static magnetic field of 1.5 T or 3 T, Max spatial gradient field of 720 Gauss/cm , Max whole body CATHY of 1.5 W/kg or less at 1.5 T , 2.9 W/kg or less at 3 T, Head CATHY 3.2 W/kg or less Procedures Procedure Name Priority Date/Time Associated Diagnosis Comments URINE BACTERIA CULTURE Routine 03/24/2025 1:42 PM CDT Malfunction of penile prosthesis XR KNEE RT 3V Routine 03/04/2025 2:41 PM CDT Knee pain, right COLONOSCOPY 07/10/2023 6:44 AM CDT from Last 3 Months or Most Recently Relevant to Health Maintenance Results * URINE BACTERIA CULTURE (03/24/2025 1:42 PM CDT) SPEC DESCRIPTION URINE CLEAN CATCH 03/24/2025 1:34 PM CDT [facility] SPECIAL REQUESTS NO SPECIAL REQUEST 03/24/2025 1:34 PM CDT [facility] CULTURE RESULT NO GROWTH (< OR = 1,000 CFU/ML) 03/26/2025 8:46 AM CDT [facility] URINE SPECIMEN OBTAINED BY CLEAN CATCH PROCEDURE / Unknown 03/24/2025 1:42 PM CDT 03/24/2025 1:43 PM CDT Mojgan Desai MD MICROBIOLOGY - GENERAL ORDERA BLES Final Result [facility] [address] [place] [address], [id number] [facility] [address] [place] [address], * XR KNEE RT 3V (03/04/2025 2:41 PM CDT) Anatomical Region Laterality Modality Knee Radiographic Raven ging 03/05/2025 7:07 AM CDT Impressions 03/05/2025 7:07 AM CDT IMPRESSION: Stable degenerative changes Ordered By: JERAD ZHONG Interpreted By: Cornelius Malin MD, 03/05/2025 7:07 AM Narrative 03/05/2025 7:07 AM CDT [address] [place] [address] 3 VIEWS OF THE RIGHT KNEE Clinical History: Pain Comparison: June 02, 2024 3 views of the right knee demonstrate the bony elements to be intact. There is no evidence of fracture or dislocation. The surrounding soft tissues appear normal. Mild joint space loss is again noted in the medial compartment Procedure Note Cornelius Malin MD - 03/05/[address] [place] [id number] 3 VIEWS OF THE RIGHT KNEE Clinical History: Pain Comparison: June 02, 2024 3 views of the right knee demonstrate the bony elements to be intact.There is no evidence of fracture or dislocation. The surrounding softtissues appear normal. Mild joint space loss is again noted in the medialcompartment IMPRESSION: Stable degenerative changes Ordered By: JERAD ZHONG Interpreted By: Cornelius Malin MD, 03/05/2025 7:07 AM Jerad Zhong PA GENERAL IMAGING Final Resu lt * Colonoscopy (07/10/2023 6:44 AM CDT) us Estiven Rosa MD GI PROCEDURE ORDERABLES Edite d Result - Final from Last 3 Months or Most Recently Relevant to Health Maintenance Additional Health Concerns Infection Onset Date Last Indicated MRSA 12/11/2018 12/11/2018 Insurance MEDICAID [employer] Care Teams Vocational Nursing Instructor Relationship Specialty Start Date End Date Manuel Eller MD [address] [place] [address] PCP - General FAMILY PRACTICE 08/18/19
--- OUTSIDE RECORDS SUMMARY | 2025-04-01 00:57 | XMS_ITS | Encounter Summary ---
Author Organization [facility] Address [facility] [place] [address] Care Team Providers Care Patient Educator Name Role Phone Manuel Eller MD Primary Care Provider [phone]- [phone] Encounter Details Date Type Department Care Team (Late st Contact Info) Description 05/03/2019 Abstract [facility] CONVERSION [address] [place] [address] , Generic Conversion, Social History Tobacco Use Types Packs/Day Years Used Date Smoking Tobacco: Never Assessed Sex and Gender Information Value Date Recorded Sex Assigned at Male 12/10/2024 9:04 AM PROCEDURES TECH Legal Sex Male 9:31 PM PROCEDURES TECH Gender Identity Not on file Sexual Orientation Not on file documented as of this encounter Plan of Treatment Not on file documented as of this encounter Visit Diagnoses Not on filedocumented in this encounter Additional Health Concerns Infection Onset Date Last Indicated Resolved Time MRSA 12/11/2018 12/11/2018 documented as of this encounter Care Teams Patient Educator Relationship Specialty Start Date End Date Manuel Eller MD [address] [place] [address] PCP - General FAMILY PRACTICE 08/18/19 documented as of this encounter
--- OUTSIDE RECORDS SUMMARY | 2025-04-01 00:57 | XMS_ITS | Encounter Summary ---
Author Organization [facility] Address [address] [place] [address] Care Team Providers Care Bleach Maker Name Role Phone Manuel Eller MD Primary Care Provider [phone]- [phone] Encounter Details Date Type Department Care Team (Late st Contact Info) Description 02/09/2018 Abstract [facility] CONVERSION [address] [place] [address] , Generic Conversion, Social History Tobacco Use Types Packs/Day Years Used Date Smoking Tobacco: Never Assessed Sex and Gender Information Value Date Recorded Sex Assigned at Male 12/10/2024 9:04 AM NUCLEAR MEDICINE OFFICER Legal Sex Male 9:31 PM NUCLEAR MEDICINE OFFICER Gender Identity Not on file Sexual Orientation Not on file documented as of this encounter Plan of Treatment Not on file documented as of this encounter Visit Diagnoses Not on filedocumented in this encounter Additional Health Concerns Infection Onset Date Last Indicated Resolved Time MRSA 12/11/2018 12/11/2018 documented as of this encounter Care Teams Bleach Maker Relationship Specialty Start Date End Date Manuel Eller MD [address] [place] [address] PCP - General FAMILY PRACTICE 08/18/19 documented as of this encounter
[2025-04-01 08:29] LABS: Add Urine Microscopic? NO; Appearance Urine Clear (Clear); Bilirubin Urine Negative (Negative); Blood Urine Negative (Negative); Color Urine Yellow (Yellow); Glucose Urine UA Negative (Negative); Ketones Urine Negative (Negative); Leukocyte Esterase Ur Negative LEU/UL (Negative); Nitrate Urine Negative (Negative); Protein Urine Negative (Negative); Specific Grav Ur 1.019 (1.001-1.035); Urobilinogen Urine 0.2 mg/dL (<2.0)
[2025-04-01] MEDS: VANCOMYCIN 1,500 MG/NS 500 ML BAG 250 MG IVPB (09:00)
[2025-04-01] MEDS: LACTATED RINGERS 1,000 ML 30 ML IV CONT ×2 (09:00→14:42)
[2025-04-01] MEDS: GENTAMICIN SULFATE INJ 380 MG in DEXTROSE 5% 100 ML 96.78 MG IVPB (09:00)
--- NOTE | 2025-04-01 09:06 | P.PNAN_ITS ---
Anes - Initial Pre Proc Eval Procedure: Operation Date: 04/01/25 10:30 Proposed Procedures p Penile Prosthesis Removal and Replacement with Washout, - Mojgan Desai MD s Scrotal Exploration - Mojgan Desai MD Date/Time: 04/01/25 09:06 Surgeon: Mojgan Desai MD Pre Op Diagnosis: malfuction of penile prothesis Patient Data Age: 54 Gender: M Height: 1.6 m Weight: 104.8 kg Last Vital Signs Temp 36.7 C 01/21/25 12:59 Pulse 91 01/21/25 12:59 Resp 16 01/21/25 12:59 BP 120/83 01/21/25 12:59 Pulse Ox 97 01/21/25 12:59 O2 Del Method Room Air 01/21/25 12:59 Allergies Allergy/AdvReac Type Severity Reaction Status Date / Time adhesive tape Allergy Intermediate Rash Verified 03/20/25 09:48 bee venom protein (honey Allergy Intermediate Swelling Verified 03/20/25 09:48 bee) (bees) Home Medications ?Medication ?Instructions ?Recorded ?Confirmed ?Type ibuprofen 800 mg tablet 800 mg PO Q12H pain 07/27/20 01/21/25 History icosapent ethyl 1 gram capsule 1 g PO BID 07/27/20 01/21/25 History (Vascepa) multivitamin 1 tablet PO DAILY 07/27/20 01/21/25 History tizanidine 2 mg tablet 2 mg PO TID 07/27/20 01/21/25 History tramadol 50 mg tablet 100 mg PO Q6H PRN Pain 07/27/20 01/21/25 History gabapentin 300 mg capsule 300 mg PO TID 01/21/25 01/21/25 History Laboratory Tests 04/01/25 08:22 Urine Color Yellow (Yellow) Urine Appearance Clear (Clear) Urine pH 7.0 (5.0-9.0) Ur Specific [place] 1.019 (1.001-1.035) Urine Protein Negative mg/dL (Negative) Urine Glucose (UA) Negative mg/dL (Negative) Urine Ketones Negative mg/dL (Negative) Ur Blood (Man) Negative (Negative) Urine Nitrate Negative (Negative) Urine Bilirubin Negative (Negative) Urine Urobilinogen 0.2 mg/dL (<2.0) Leukocyte Esterase Rfl Negative SAMUEL/UL (Negative) Patient hx anesthesia problems: none Family hx anesthesia problems: none Results Review: All pre-operative results and documents have been reviewed as part of the pre- operative evaluation. [facility] Past Medical History Medical History Chronic, continuous use of opioids tramadol History of MRSA infection NISA (obstructive sleep apnea) Surgical History Surgical History History of tonsillectomy History of appendectomy Social History Social History Years smoked: 1 Smoking status: Former smoker Tobacco type: cigars Smoking end date: 11/26/04 Additional smoking assessment comments: No cigars since 2004 Alcohol intake: current Drinks per week: 2 Substance use: never Living arrangements: with family Additional living arrangements comments: Spiritual care concerns: No Anes - Eval Final PreProcedure Day of Procedure 04/01/25 09:06 Patient weight: morbidly obese Heart: regular rate and rhythm Lungs: decreased breath sounds Airway: Mallampati scale class III Neurological: alert and oriented Last oral intake: >/= 8 hours ASA classification: III Emergent: no Anesthetic plan: proceed Anesthesia type and monitoring: general LMA and standard monitoring Results Review: All pre-operative results and documents have been reviewed as part of the pre-operative evaluation. Informed Consent: The patient's anesthetic plan and its attendant risks and benefits were discussed with the patient/family/POA. Questions were solicited and answers provided to the satisfaction of the patient/family/POA.
--- NOTE | 2025-04-01 10:41 | P.HP_ITS ---
H&P: HPI History of Present Illness Date/Time: 04/01/25 10:41 Chief Complaint: IPP malfunction PMFSH Past Medical History Medical History (Updated 04/01/25 @ 10:42 by Mojgan Desai MD) Failure of penile implant Chronic, continuous use of opioids tramadol History of MRSA infection NISA (obstructive sleep apnea) Surgical History Surgical History History of tonsillectomy History of appendectomy Social History Social History Years smoked: 1 Smoking status: Former smoker Tobacco type: cigars Smoking end date: 11/26/04 Additional smoking assessment comments: No cigars since 2004 Alcohol intake: current Drinks per week: 2 Substance use: never Living arrangements: with family Additional living arrangements comments: Spiritual care concerns: No Meds Home Medications and Allergies Home Medications ?Medication ?Instructions ?Recorded ?Confirmed ?Type ibuprofen 800 mg tablet 800 mg PO Q12H pain 07/27/20 01/21/25 History icosapent ethyl 1 gram capsule 1 g PO BID 07/27/20 01/21/25 History (Vascepa) multivitamin 1 tablet PO DAILY 07/27/20 01/21/25 History tizanidine 2 mg tablet 2 mg PO TID 07/27/20 01/21/25 History tramadol 50 mg tablet 100 mg PO Q6H PRN Pain 07/27/20 04/01/25 History gabapentin 300 mg capsule 300 mg PO TID 01/21/25 01/21/25 History Allergies Allergy/AdvReac Type Severity Reaction Status Date / Time adhesive tape Allergy Intermediate Rash Verified 04/01/25 09:34 bee venom protein (honey Allergy Intermediate Swelling Verified 04/01/25 09:34 bee) (bees) Vital Signs Vital Signs - 24 hr 04/01/25 09:00 Temperature 36.6 C Pulse Rate 72 Respiratory Rate 14 Blood Pressure 136/70 Pulse Oximetry 99 Oxygen Delivery Room Air Exam Narrative: Patient is awake alert no acute distress. His breathing is labored. Abdomen soft nontender nondistended. He has penile prosthesis in place that does not inflate. H&P: Results Labs Labs: Urine 04/01/25 Range/Units 08:22 Urine Color Yellow (Yellow) Urine Appearance Clear (Clear) Urine pH 7.0 (5.0-9.0) Ur Specific [place] 1.019 (1.001-1.035) Urine Protein Negative (Negative) mg/dL Urine Glucose (UA) Negative (Negative) mg/dL Assessment and Plan Assessment and plan (1) Erectile dysfunction: Code(s): N52.9 - Male erectile dysfunction, unspecified Status: Acute (2) Failure of penile implant: Code(s): T83.410A - Breakdown (mechanical) of implanted penile prosthesis, initial encounter Status: Acute Plan Risk/benefits/alternatives discussed with the patient. Penile prosthesis placed in 2019 no longer functions. Plan penile prosthesis removal and replacement with antibiotic washout. He understands risk procedure and agrees to proceed
--- NOTE | 2025-04-01 10:43 | WPDHPUPDATE1 ---
History and Physical Update Update Date/Time: 04/01/25 10:43 History and Physical has been reviewed, including an updated exam of the patient. There are NO changes in the patient's condition. Risks, benefits, and alternatives have been discussed and questions answered. Patient agrees to proceed with procedure.
[2025-04-01] MEDS: NACL 0.9% IRRIG BAG 1,000 ML, VANCOMYCIN HCL 1,000 MG, GENTAMICIN SULFATE INJ 80 MG IRRIGATION (11:34)
[2025-04-01] MEDS: NACL 0.9% IRRIG BAG 1,000 ML, ceFAZolin 1 GM, TOBRAMYCIN SULFATE INJ 40 MG IRRIGATION (11:34)
[2025-04-01] MEDS: LIDOCAINE 1% LOCAL INJ 20 ML VIAL INFILTRATE (11:36)
[2025-04-01] MEDS: ceFAZolin SODIUM 1 GM VIAL (11:37)
[2025-04-01] MEDS: BUPivacaine HCL 0.25% PF 30 ML VIAL INFILTRATE (11:37)
--- NOTE | 2025-04-01 14:46 | W.PM.PROC2 ---
Procedure Note - Detailed Date of Procedure 04/01/25 Pre-op Diagnosis malfuction of penile prothesis Post-op Diagnosis Same Procedure Performed Penile prosthesis removal and replacement Scrotal Exploration Surgeon Mojgan Desai MD Anesthesia General Findings - Bilateral penile prosthesis cylinders broken and imbedded into corporal bodies (AMS LGX 18 + 1cm), replacement to AMS CX 18+2cm device Description of Procedure Informed consent was obtained. The patient taken to the operating room and given preoperative IV antibiotics with vancomycin and gentamicin. Additionally the patient was taking oral levofloxacin at home. The patient was shaved, prepped and draped in the normal sterile fashion in the supine position was frog legged. The patient had a scrub and paint with Betadine followed by ChloraPrep. A 16 [place] Meraz catheter was placed. We then made a 4 cm incision over the patient's pre-existing penoscrotal incision. We then dissected bluntly down to the pump. The pump was identified and freed from surrounding structures. We then dissected down to the right corporal body. We opened the corpora and found that the cylinder was broken and had imbedded into the inner layers of the corporal body. We therefore extended our corporotomy proximally and dissected the imbedded cylinder away from surrounding structures taking great care not to injure the urethra during dissection. The cylinder was imbedded into the corpora however after significant dissection were able to free the cylinder from the corporal body. The cylinder was then removed. We irrigated confirming lack of injury. We placed stay sutures with 2-0 PDS. The corpora measured a total of 20cm. We then focused our attention to the contralateral left side again opening the upper body and encountering that the cylinder was imbedded into the corpora. We again took great care with dissection of the cylinder away from the corporal body. Once the cylinder was removed we then placed stay sutures and irrigated copiously to ensure there was no injury. We then measured the corpora and it was 20cm. At this point we then made a right lower quadrant incision through her previous incision site. We dissected down to the tubing at the external oblique fascia. The fascia was opened and then the reservoir was removed. We then irrigated all spaces with multiple fluids with Vancomycin/gentamicin and Tobramycin/Ancef. We copiously irrigated, changed our gloves. We then irrigated the corporal bodies again. We placed dilators into each of the proximal corpora and there was no crossover noted. There was no ureteral injury. We placed an 18cm + 2 cm rear tip CX device. Despite the large corporotomy, the device sat nicely in evenly in the corporal with the tips in the mid gland. A surrogate reservoir test was performed before and after closing the corporotomy, it sat nicely. We then again irrigated copiously. We then irrigated the sub rectus space from previous reservoir position. There appeared to be sufficient space for a new reservoir. We pre-placed 0 Vicryl sutures. We placed the reservoir in the sub rectus space. We fill it with 100 mL and there was no back pressure. We then left 85mL in the reservoir. Our pre-placed external oblique fascia sutures were closed. We then made a subdartos pouch in the midline for the pump placement. It sat nicely in the inferior scrotum. We then closed the hiatus with 3-0 Vicryl suture. The tubing was then brought up to the abdominal incision. Using the quick connect device, we connected the pump to the reservoir. We then cycled the device again and it functioned nicely. We then removed the stay sutures through the glans. We then again irrigated copiously. We closed the scrotal incision with multiple layers of transverse 3-0 Vicryl sutures and then 3-0 and 4-0 Monocryl skin closure. The right lower quadrant incision was closed with 2-0 Vicryl to Morena's, 3-0 Vicryl deep dermal layer and a 4-0 Monocryl subcuticular closure. Glue was placed over all incisions. A compressive dressing was placed. Patient was awakened and taken to recovery room in stable condition. Complications No immediate complications Condition Stable Disposition PACU
[2025-04-01] MEDS: fentaNYL CITRATE INJ (*CRX) 100 MCG/2 ML VIAL 25 MCG IV PUSH ×7 (14:54→15:40)
[2025-04-01] MEDS: oxyCODONE HCL (*CRX) 5 MG TAB IR PO (16:20)
== END 2025-04-01 16:58 | disposition home or self-care (01) ==
PROVIDERS: PCP Family Medicine; Visit Provider Urology
PROC: (CPT 55110; principal; 2025-04-01 10:30)
PROC: (CPT 55110; 2025-04-01 10:30)
DX: T83.410A Breakdown (mechanical) of implanted penile prosthesis, initial encounter (principal); Y83.1 Surgical operation with implant of artificial internal device as the cause of abnormal reaction of the patient, or of later complication, without mention of misadventure at the time of the procedure; G47.33 Obstructive sleep apnea (adult) (pediatric); E66.01 Morbid (severe) obesity due to excess calories; Z68.41 Body mass index [BMI] 40.0-44.9, adult; Z79.1 Long term (current) use of non-steroidal anti-inflammatories (NSAID); Z79.891 Long term (current) use of opiate analgesic; Z98.890 Other specified postprocedural states; Z87.891 Personal history of nicotine dependence
CPT/HCPCS: 55110; 54410; 81003; A9270; C1813; J0690; J1100; J1171; J1580; J2003; J2250; J2405; J2704; J3010; J3260; J3370; J7030; J7120